=== PATIENT | male | born 1995 | race Caucasian/White ===

== ENCOUNTER 2022-07-08 21:16 | Emergency (ER) | payer OTHER ==
[~2022-07-08] VITALS: Ht 188 cm; Wt 102.0 kg
[~2022-07-08 21:16] MED LIST: AGM875T PO; AZTH250C PO; PRD20T PO
[2022-07-08] MEDS ORDERED: NS IV 1000 ML 1,000 ML IV STA (21:43)
--- NOTE | 2022-07-08 21:43 | ED Abdominal Pain ---
General Chief Complaint: Abdominal/GI Problems Stated Complaint: ABD PAIN Nursing Triage Note: pt ambulatory to room. 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 states he ate dinner at a gas station, went to bed, and abd pain woke him up. pt states pain is a stabbing, cramping pain in his middle abd, rating it 6/10. states he had a normal BM yesterday. denies N/V/D. states he is also dizzy on arrival with "numbness" in bilat hands. pt states he took pepto and tums at approx 2000 this evening and neither of them helped. (DIANA FREDERICK APRN) History of Present Illness Date Seen by Provider: Jul 08, 2022 Time Seen by Provider: 21:43 Initial Comments Patient reports that he started having epigastric and right upper quadrant abdominal pain a few hours ago. No history of gallbladder problems. States that the last thing that he ate was chicken nuggets from the gas station. Does admit to some alcohol use tonight in addition. Denies nausea, vomiting, diarrhea. No history of similar symptoms in the past. Timing/Duration: 1-3 Hours Severity/Quality: Moderate Location: RUQ, Epigastric Radiation: No Radiation Activities at Onset: Sleeping Associated Symptoms: No Nausea/Vomiting (DIANA FREDERICK APRN) Allergies and Home Medications Allergies Coded Allergies: No Known Drug Allergies (Unverified , 01/25/13) Patient Home Medication List Home Medication List Reviewed: Yes (DIANA FREDERICK APRN) Amoxicillin/Clavulanate K (Augmentin 875 Mg Tablet) 875 Mg Tab, 1 TAB PO BID Prescribed by: RIMMA SILVA on 03/16/14 1502 Review of Systems Review of Systems Constitutional: No chills, No dizziness, No fever Cardiovascular: No Symptoms Reported Gastrointestinal: Abdominal Pain; Denies Constipated, Denies Diarrhea, Denies N ausea, Denies Vomiting Genitourinary: Denies Burning, Denies Frequency Musculoskeletal: no symptoms reported Skin: no symptoms reported (DIANA FREDERICK APRN) All Other Systems Reviewed Negative Unless Noted: Yes (DIANA FREDERICK APRN) Past Sfdsnqq-Ftrubz-Gefgag Hx Immunizations Up To Date Tetanus Booster (TDap): Less than 5yrs (DIANA FREDERICK APRN) Seasonal Allergies Seasonal Allergies: No (DIANA FREDERICK APRN) Past Medical History Reproductive Disorders: No Sexually Transmitted Disease: No HIV/AIDS: No Adverse Reaction/Blood Tranf: No (DIANA FREDERICK APRN) Family Medical History Reviewed Nursing Family Hx (DIANA FREDERICK APRN) Physical Exam Vital Signs Vital Signs - First Documented 07/08/22 21:23 Temp 35.9 Pulse 73 Resp 18 B/P (MAP) 144/104 (117) Pulse Ox 94 (SHIRA,RIMMA K DO) Vital Signs Capillary Refill : (DIANA FREDERICK APRN) Height/Weight/BMI Height: 6'2" Weight: 230lbs. oz. 104.280548gi; 28.00 BMI Method:Stated General Appearance: mild distress (pain) Neck: non-tender, full range of motion, supple Respiratory: chest non-tender, lungs clear, normal breath sounds, no respiratory distress, no accessory muscle use Cardiovascular: regular rate, rhythm, no edema Gastrointestinal: soft, tenderness (right upper quadrant and epigastric) Neurologic/Psychiatric: normal mood/affect, oriented x 3 (DIANA FREDERICK APRN) Progress/Results/Core Measures Results/Orders Lab Results Laboratory Tests Test 07/08/22 21:26 07/08/22 22:10 Range/Units White Blood Count 8.9 4.3-11.0 10^3/uL Red Blood Count 5.83 H 4.30-5.52 10^6/uL Hemoglobin 17.3 13.3-17.7 g/dL Hematocrit 49 40-54 % Mean Corpuscular Volume 83 80-99 fL Mean Corpuscular Hemoglobin 30 25-34 pg Mean Corpuscular Hemoglobin Concent 36 32-36 g/dL Red Cell Distribution Width 12.1 10.0-14.5 % Platelet Count 236 130-400 10^3/uL Mean Platelet Volume 10.4 9.0-12.2 fL Immature Granulocyte % (Auto) 0 % Neutrophils (%) (Auto) 60 42-75 % Lymphocytes (%) (Auto) 29 12-44 % Monocytes (%) (Auto) 7 0-12 % Eosinophils (%) (Auto) 3 0-10 % Basophils (%) (Auto) 0 0-10 % Neutrophils # (Auto) 5.4 1.8-7.8 10^3/uL Lymphocytes # (Auto) 2.6 1.0-4.0 10^3/uL Monocytes # (Auto) 0.7 0.0-1.0 10^3/uL Eosinophils # (Auto) 0.2 0.0-0.3 10^3/uL Basophils # (Auto) 0.0 0.0-0.1 10^3/uL Immature Granulocyte # (Auto) 0.0 0.0-0.1 10^3/uL Sodium Level 144 135-145 MMOL/L Potassium Level 3.8 3.6-5.0 MMOL/L Chloride Level 107 98-107 MMOL/L Carbon Dioxide Level 19 L 21-32 MMOL/L Anion Gap 18 H 5-14 MMOL/L Blood Urea Nitrogen 11 7-18 MG/DL Creatinine 0.90 0.60-1.30 MG/DL Estimat Glomerular Filtration Rate 120 BUN/Creatinine Ratio 12 Glucose Level 102 70-105 MG/DL Calcium Level 10.0 8.5-10.1 MG/DL Corrected Calcium 8.5-10.1 MG/DL Total Bilirubin 0.4 0.1-1.0 MG/DL Aspartate Amino Transf (AST/SGOT) 26 5-34 U/L Alanine Aminotransferase (ALT/SGPT) 26 0-55 U/L Alkaline Phosphatase 40 40-136 U/L Total Protein 7.9 6.4-8.2 GM/DL Albumin 4.9 H 3.2-4.5 GM/DL Amylase Level 43 25-125 U/L Lipase 17 8-78 U/L Serum Alcohol 83 H <10 MG/DL Monoscreen NEGATIVE NEGATIVE Urine Color YELLOW Urine Clarity SL CLOUDY Urine pH 7.5 5-9 Urine Specific [place] 1.020 1.016-1.022 Urine Protein NEGATIVE NEGATIVE Urine Glucose (UA) NEGATIVE NEGATIVE Urine Ketones TRACE H NEGATIVE Urine Nitrite NEGATIVE NEGATIVE Urine Bilirubin NEGATIVE NEGATIVE Urine Urobilinogen 0.2 < = 1.0 MG/DL Urine Leukocyte Esterase NEGATIVE NEGATIVE Urine RBC (Auto) NEGATIVE NEGATIVE Urine RBC NONE /HPF Urine WBC NONE /HPF Urine Squamous Epithelial Cells NONE /HPF Urine Crystals PRESENT H /LPF Urine Amorphous Sediment MOD TRICIA PHOSPHATE H /LPF Urine Bacteria TRACE /HPF Urine Casts NONE /LPF Urine Mucus NEGATIVE /LPF Urine Culture Indicated NO Urine Opiates Screen NEGATIVE NEGATIVE Urine Oxycodone Screen NEGATIVE NEGATIVE Urine Methadone Screen NEGATIVE NEGATIVE Urine Propoxyphene Screen NEGATIVE NEGATIVE Urine Barbiturates Screen NEGATIVE NEGATIVE Ur Tricyclic Antidepressants Screen NEGATIVE NEGATIVE Urine Phencyclidine Screen NEGATIVE NEGATIVE Urine Amphetamines Screen NEGATIVE NEGATIVE Urine Methamphetamines Screen NEGATIVE NEGATIVE Urine Benzodiazepines Screen NEGATIVE NEGATIVE Urine Cocaine Screen NEGATIVE NEGATIVE Urine Cannabinoids Screen NEGATIVE NEGATIVE (RIMMA SILVA DO) My Orders Orders - RIMMA SILVA DO Monotest (07/08/22 23:12) Drug Screen Stat (Urine) (07/08/22 23:12) Ketorolac Injection (Toradol Injection) (07/08/22 23:30) Pantoprazole Injection (Protonix Injecti (07/08/22 23:30) (RIMMA SILVA DO) Medications Given in ED Current Medications Medications Dose Ordered Sig/Nydia Route Start Time Stop Time Status Last Admin Dose Admin Al Hydrox/Mg Hydrox/Simethicone 30 ml ONCE ONCE PO 07/08/22 21:45 07/08/22 21:46 DC 07/08/22 22:35 30 ML Fentanyl Citrate 50 mcg ONCE ONCE IVP 07/08/22 22:15 07/08/22 22:16 DC 07/08/22 22:34 50 MCG Iohexol 100 ml ONCE ONCE IV 07/08/22 22:30 07/08/22 22:31 DC 07/08/22 22:28 80 ML Lidocaine HCl 15 ml ONCE ONCE PO 07/08/22 21:45 07/08/22 21:46 DC 07/08/22 22:35 15 ML Ondansetron HCl 4 mg ONCE ONCE IVP 07/08/22 21:45 07/08/22 21:46 DC 07/08/22 22:34 4 MG Sodium Chloride 10 ml NEEDED PRN IV 07/08/22 22:30 07/08/22 22:28 10 ML Sodium Chloride 100 ml ONCE ONCE IV 07/08/22 22:30 07/08/22 22:31 DC 07/08/22 22:28 80 ML (RIMMA SILVA DO) Vital Signs/I&O 07/08/22 21:23 Temp 35.9 Pulse 73 Resp 18 B/P (MAP) 144/104 (117) Pulse Ox 94 (RIMMA SILVA DO) Blood Pressure Mean: 117 Progress Progress Note : Progress Note 2300--ASSUMED CARE OF PT AT END OF SHIFT. CT RESULTS PENDING (RIMMA SILVA DO) Diagnostic Imaging Comments CT ABDOMEN/PELVIS--PER [facility] VIA FAX AT 0008 -MULTIPLE PROMINENT MESENTERIC LYMPH NODES SCATTERED THROUGHOUT MESENTERIC FAT, POSSIBLE MESENTERIC ADENITIS -HEPATIC STEATOSIS -SPLENOMEGALY Reviewed: Reviewed by Me (RIMMA SILVA DO) Departure Impression Primary Impression: Mesenteric adenitis Disposition: HOME, SELF-CARE Condition: Stable Departure-Patient Inst. Decision time for Depature: 00:01 (RIMMA SILVA DO) Referrals: [facility],LOCAL PHYSICIAN (PCP) Primary Care Physician Patient Instructions: Mesenteric Lymphadenitis (DC) Add. Discharge Instructions: HOME,REST LOTS OF CLEAR LIQUIDS--WATER, BROTH, JELLO, GATORADE NO COFFEE, POP OR TEA NO ALCOHOL TOMORROW IF YOU ARE BETTER, ADD BRATS DIET TO CLEAR LIQUIDS--BANANAS, RICE, APPLESAUCE, TOAST, SALTINES TYLENOL AND MOTRIN NEEDED FOR PAIN OR FEVER FOLLOW UP WITH [facility] IN 2-3 DAYS IF NO BETTER, RETURN TO ER IF WORSE All discharge instructions reviewed with patient and/or family. Voiced understanding. Scripts Pantoprazole Sodium (Protonix) 40 Mg Tablet.dr 40 MG PO DAILY, #15 TAB Prov: SHIRARIMMA 07/09/22 Ondansetron (Ondansetron Odt) 4 Mg Tab.rapdis 4 MG PO Q4H for Nausea/Vomiting, #10 TAB Prov: SHIRARIMMA Chyna TODD 07/09/22 Dicyclomine HCl (Dicyclomine HCl) 20 Mg Tablet 20 MG PO Q6H for Abdominal Pain, #20 TAB Prov: SHIRARIMMA Chyna TODD 07/09/22 Amoxicillin/Potassium Clav (Amox Tr-K Clv 875-125 mg Tab) 875 Mg-125 Mg Tablet 1 EACH PO BID for 7 Days, #14 TAB Prov: SIHRARIMMA Chyna TODD 07/09/22 DIANA FREDERICK APRN Jul 08, 2022 21:43 RIMMA SILVA DO Jul 08, 2022 23:11
[2022-07-08] MEDS ORDERED: ANTACID SUSP 30 ML UDC (MYLANTA) PO ONE (21:45)
[2022-07-08] MEDS ORDERED: LIDOCAINE 2% VISCOUS 15 ML UDC PO ONE (21:45)
[2022-07-08] MEDS ORDERED: ONDANSETRON 4 MG/2 ML (SDV) Z0FRAN IVP ONE (21:45)
[2022-07-08 21:51] LABS: BASOPHILS % (AUTO) 0 % (0-10); EOSINOPHILS # (AUTO) 0.2 10^3/uL (0.0-0.3); EOSINOPHILS % (AUTO) 3 % (0-10); HEMATOCRIT 49 % (40-54); HEMOGLOBIN 17.3 g/dL (13.3-17.7); LYMPHOCYTES # (AUTO) 2.6 10^3/uL (1.0-4.0); LYMPHOCYTES % (AUTO) 29 % (12-44); MEAN CORPUSCULAR HEMOGLOBIN 30 pg (25-34); MEAN CORPUSCULAR HGB CONC 36 g/dL (32-36); MEAN CORPUSCULAR VOLUME 83 fL (80-99); MEAN PLATELET VOLUME 10.4 fL (9.0-12.2); MONOCYTES # (AUTO) 0.7 10^3/uL (0.0-1.0); MONOCYTES % (AUTO) 7 % (0-12); NEUTROPHILS # (AUTO) 5.4 10^3/uL (1.8-7.8); NEUTROPHILS % (AUTO) 60 % (42-75); PLATELET COUNT 236 10^3/uL (130-400); WHITE BLOOD COUNT 8.9 10^3/uL (4.3-11.0)
[2022-07-08 22:04] LABS: ALANINE AMINOTRANSFERASE 26 U/L (0-55); ALBUMIN 4.9 GM/DL (3.2-4.5); ALKALINE PHOSPHATASE 40 U/L (40-136); AMYLASE 43 U/L (25-125); BILIRUBIN,TOTAL 0.4 MG/DL (0.1-1.0); BUN/CREATININE RATIO 12; CARBON DIOXIDE 19 MMOL/L (21-32); CHLORIDE 107 MMOL/L (98-107); GFR ESTIMATED 120; GLUCOSE 102 MG/DL (70-105); LIPASE 17 U/L (8-78); POTASSIUM 3.8 MMOL/L (3.6-5.0); SODIUM 144 MMOL/L (135-145); TOTAL PROTEIN 7.9 GM/DL (6.4-8.2)
[2022-07-08] MEDS ORDERED: fentaNYL INJ 100 MCG/2 ML AMP IVP ONE (22:15)
[2022-07-08 22:17] LABS: BILIRUBIN,URINE NEGATIVE (NEGATIVE); CLARITY,URINE SL CLOUDY; COLOR,URINE YELLOW; GLUCOSE, URINE (UA) NEGATIVE (NEGATIVE); KETONES,URINE TRACE (NEGATIVE); LEUKOCYTE ESTERASE ,URINE NEGATIVE (NEGATIVE); NITRITE,URINE NEGATIVE (NEGATIVE); PH,URINE 7.5 (5-9); PROTEIN,URINE NEGATIVE (NEGATIVE)
[2022-07-08 22:25] LABS: BACTERIA,URINE TRACE /HPF
[2022-07-08 22:26] LABS: AMORPHOUS SEDIMENT,UR MOD AMOR PHOSPHATE /LPF
[2022-07-08] MEDS ORDERED: CATHETER FLUSH 10 ML SYR IV PRN (22:30)
[2022-07-08] MEDS ORDERED: NS 100 ML (IVPB) BAG IV ONE (22:30)
[2022-07-08] MEDS ORDERED: IOHEXOL 350 MG/ML 100 ML (OMNIPAQUE 350) VIAL IV ONE (22:30)
[2022-07-08] MEDS ORDERED: PANTOPRAZOLE 40 MG (PROTONIX) VIAL IV ONE (23:30)
[2022-07-08] MEDS ORDERED: KETOROLAC 30 MG/ML VIAL IVP ONE (23:30)
[2022-07-08 23:38] LABS: AMPHETAMINE SCREEN, URINE NEGATIVE (NEGATIVE); BARBITURATE SCREEN URINE NEGATIVE (NEGATIVE); BENZODIAZEPINES SCREEN URINE NEGATIVE (NEGATIVE); CANNABINOID SCREEN, URINE NEGATIVE (NEGATIVE); COCAINE SCREEN URINE NEGATIVE (NEGATIVE); METHADONE STAT NEGATIVE (NEGATIVE); OPIATE SCREEN URINE NEGATIVE (NEGATIVE); OXYCODONE STAT NEGATIVE (NEGATIVE); PROPOXYPHENE STAT NEGATIVE (NEGATIVE); TRICYCLIC ANTIDEPRESSANTS SCRE NEGATIVE (NEGATIVE)
[2022-07-09] MEDS ORDERED: AMOX1TAB12 PO (00:25)
[2022-07-09] MEDS ORDERED: PANT40TA2 PO (00:25)
[2022-07-09] MEDS ORDERED: DICY20TA PO (00:25)
[2022-07-09] MEDS ORDERED: ONDA4TAB11 PO (00:25)
[2022-07-09 00:46] VITALS: BP 137/83
--- NOTE | 2022-07-09 07:15 | Diagnostic Imaging Report ---
EXAMINATION: CT abdomen and pelvis with intravenous contrast. TECHNIQUE: Multiple contiguous axial images were obtained through the abdomen and pelvis after the uneventful administration of intravenous contrast. All CT scans use one or more of the following dose optimizing techniques: automated exposure control, MA and/or KvP adjustment based on patient size and exam type or iterative reconstruction. HISTORY: Right upper quadrant pain COMPARISON: 03/16/2014 FINDINGS: Limited views of the lower thorax are unremarkable. The liver is normal without focal lesion. There is no biliary ductal dilation. Gallbladder is normal. Pancreas is normal. Spleen is normal. Adrenal glands are normal. The kidneys are normal. There is no hydronephrosis. Urinary bladder is normal. Bowel is normal in caliber without obstruction or inflammation. No free fluid or air. No abdominal or pelvic lymphadenopathy. Aorta is normal in caliber without aneurysm. There are no suspicious osseus lesions. IMPRESSION: 1. No acute abnormality in the abdomen or pelvis. Preliminary report suggest mesenteric adenitis, while possible I suspect that the mesenteric lymph nodes are within normal limits. 2. Preliminary report suggest splenomegaly. In my opinion the spleen is normal in size with craniocaudal dimension of 12 cm. Report was faxed and called to Dr. Erickson by cedric at 7:11am. YULIA Puckett, was also notified. Dictated by: Dictated on workstation # [id number]
== END 2022-07-09 00:46 | disposition home or self-care (01) ==
LOC: EDUNIT# 21:16 → ER 21:18
DX: I88.0 Nonspecific mesenteric lymphadenitis (principal); Z28.310 Unvaccinated for COVID-19
CPT/HCPCS: 74177; 80053; 80306; 81000; 82150; 83690; 85025; 86308; 99283; G0480; 36415; 80320